=== PATIENT | female | born 1965 | race African-American/Black ===

== ENCOUNTER 2019-04-08 21:38 | Emergency (ER) | payer OTHER ==
[2019-04-08 21:43] VITALS: TEMP 97.6; BMI 27.4
[2019-04-08] MEDS ORDERED: predniSONE 20 MG TABLET (UD) PO ONE (22:38)
[2019-04-08] MEDS ORDERED: ALBUTEROL SO4 2.5/IPRATROPIUM 0.5 INH SOL 3 ML VIAL.NEB. NEB ONE ×2 (22:38→22:55)
--- NOTE | 2019-04-08 22:42 | PDOC ---
History of Present Illness - General Chief Complaint: Eye Problem Stated Complaint: LEFT EYE PAIN Time Seen by Provider: 04/08/19 22:29 - History of Present Illness Initial Comments: 04/08/19 22:35 Patient is a 53-year-old female with history of ectopic with salpingectomy, C- section x1, pneumothorax c/o cough x5 days. Denies fever, chills. Today while coughing patient states she developed redness to the left eye and now has some discomfort. She has been having a slight headache which she does not currently have and thought that the headache was associated with the bleed in the eye. She denies any fever, chills, dysuria. No flu shot PMD: Dr. Quintanilla PMHX: As above PSOHX: neg etoh, drug, cig ALL: NKDA Review of Systems: GENERAL/CONSTITUTIONAL: No fever or chills. No weakness. No weight change. HEAD, EYES, EARS, NOSE AND THROAT: No change in vision. No ear pain or discharge. No sore throat. CARDIOVASCULAR: No chest pain or shortness of breath. RESPIRATORY: (+) cough, wheezing, or hemoptysis. GASTROINTESTINAL: No nausea, vomiting, diarrhea or constipation. No rectal bleeding. GENITOURINARY: No dysuria, frequency, or change in urination. MUSCULOSKELETAL: No joint or muscle swelling or pain. No neck or back pain. SKIN AND BREASTS: No rash or easy bruising. NEUROLOGIC: (+) headache, vertigo, loss of consciousness, or loss of sensation. PSYCHIATRIC: No depression or anxiety. ENDOCRINE: No increased thirst. No abnormal weight change. HEMATOLOGIC/LYMPHATIC: No anemia, easy bleeding, or history of blood clots. ALLERGIC/IMMUNOLOGIC: No hives or skin allergy. No latex allergy. GENERAL: [The patient is awake, alert, and fully oriented, in no acute distress. ] HEAD: [Normal with no signs of trauma.] EYES: [Pupils equal, round and reactive to light, extraocular movements intact, sclera anicteric, conjunctiva (+) subconjunctival hemorrhage noted to the lateral aspect] VA left eye 20/40, right 20/20 ENT: [Ears normal, nares patent, oropharynx clear without exudates. Moist mucous membranes.] NECK: [Normal range of motion, supple without lymphadenopathy, JVD, or masses.] LUNGS: [Breath sounds equal, clear to auscultation bilaterally. (+) wheezes bases, and no crackles.] HEART: [Regular rate and rhythm, normal S1 and S2 without murmur, rub.] ABDOMEN: [Soft, nontender, normoactive bowel sounds. No guarding, no rebound. No masses.] EXTREMITIES: [Normal range of motion, no edema. No clubbing or cyanosis. No cords, erythema, or tenderness.] NEUROLOGICAL: [Cranial nerves II through XII grossly intact. Normal speech, normal gait.] PSYCH: [Normal mood, normal affect.] SKIN: [Warm, Dry, normal turgor, no rashes or lesions noted.] Past History - Past Medical History Allergies/Adverse Reactions: Allergies Allergy/AdvReac Type Severity Reaction Status Date / Time No Known Allergies Allergy Verified 04/08/19 21:43 Home Medications: Ambulatory Orders Albuterol Sulfate Inhaler - [Ventolin HFA Inhaler -] 2 inh PO Q4H #1 inh Benzonatate [Tessalon Pearls -] 100 mg PO TID #21 capsule 04/09/19 COPD: No - Surgical History Abdominal Surgery: Yes (HERNIA) - Psycho Social/Smoking Cessation Hx Smoking History: Never smoked *Physical Exam - Vital Signs Last Vital Signs Temp Pulse Resp BP Pulse Ox 97.6 F 66 18 112/70 98 04/08/19 21:40 04/08/19 21:40 04/08/19 21:40 04/08/19 21:40 04/08/19 21:40 Medical Decision Making - Medical Decision Making 04/08/19 22:35 Patient is a 53-year-old female with history of ectopic with salpingectomy, C- section x1, pneumothorax c/o cough x5 days. Denies fever, chills. Today while coughing patient states she developed redness to the left eye and now has some discomfort. She has been having a slight headache which she does not currently have and thought that the headache was associated with the bleed in the eye. She denies any fever, chills, dysuria. No flu shot. Patient's symptoms consistent with bronchitis Neb treatment, prednisone 60 mg p.o. Chest x-ray Reassess Patient feels improved after nebs Reassurance that the eye complaints will resolve in about 2 weeks I discussed the physical exam findings, ancillary test results and final diagnoses with the patient. I answered all of the patient's questions. The patient was satisfied with the care received and felt comfortable with the discharge plan and treatment plan. The Patient agrees to follow up with the primary care physician within 24-72 hours. Discharge - Discharge Information Problems reviewed: Yes Clinical Impression/Diagnosis: Bronchitis Condition: Stable Disposition: HOME - Additional Discharge Information Prescriptions: Albuterol Sulfate Inhaler - [Ventolin HFA Inhaler -] 2 inh PO Q4H #1 inh Benzonatate [Tessalon Pearls -] 100 mg PO TID #21 capsule - Follow up/Referral - Patient Discharge Instructions Patient Printed Discharge Instructions: DI for Acute Bronchitis Additional Instructions: Your Discharge Instructions: You must call primary care physician within 24 hours to arrange follow-up. Return to the Emergency Department with any new, persistent or worsening symptoms, for fever, chills, SOB, dizziness or any other concerning changes that may occur. - Post Discharge Activity Work/Back to School Note: Back to Work
[2019-04-08] MEDS ORDERED: predniSONE 20 MG TABLET (UD) ONE (22:55)
[2019-04-09 00:50] VITALS: BP 122/76; PULSE 78
== END 2019-04-09 00:49 | disposition home or self-care (01) ==
LOC: JER 21:38
PROC: 3E0F7GC Introduction of Other Therapeutic Substance into Respiratory Tract, Via Natural or Artificial Opening (ICD-10-PCS; principal; 2019-04-08)
DX: J40 Bronchitis, not specified as acute or chronic (principal)
CPT/HCPCS: 71046-TC-FY; 99282-25